=== PATIENT | female | born 1935 | race Caucasian/White ===

== ENCOUNTER 2017-10-02 13:45 | Outpatient (RCR) | payer MEDICARE ==
[2017-09-27 14:01] LABS: PLATELET COUNT, AUTOMATED 162 K/uL (150-450)
[2017-09-27 14:13] VITALS: BP 137/57
[~2017-10-02 13:45] MED LIST: ACET-1966 PO; ANAS1TAB35 PO; ASCO1CAP7 PO; BISA-229 PO; CALC-521 PO; CALC500T6 PO; CHOL10005 PO; CHOL100058 PO; CHOL500045 PO; CHROMIUM GTF PO; DOCU-416 PO; GOLYTE PO; HYDR12.556 PO; HYDR12.561 PO; IBAN150T6 PO; LATODPT OU; LISI-362 PO; LISI20TA29 PO; LOR5 PO; MAGN250T34 PO; MULT-1081 PO; NAPR220C12 PO; OXYC-865 PO; PER PO; SILV20CR2 TP; [UNRECOGNIZED DRUG - CODE] OP
[2017-10-02 13:52] VITALS: BP 150/79
--- NOTE | 2017-10-02 14:33 | ONC Progress Note - NP.Halsey ---
Patient History Date of Service Oct 02, 2017 Reason For Visit/HPI Patient is seen in the clinic today for follow up of her recurrent breast cancer and resected colon cancer. Overall she reports that she is feeling well. She does have some ongoing bowel irregularity with episodes of diarrhea followed by constipation. She is not sure if this has anything to do with certain foods that she eats. She occasionally has some abdominal cramping. She denies any nausea or weight loss. She has no shortness of breath, chest pain or cough. She occasionally has a twinge that radiates from the right chest wall to the back scapula. She does not take any medication for this but reports that just repositioning when she is in bed and the pain goes away. She denies any nocturia but does have increased frequency during the day which remains stable. She continues on Arimidex 1 mg daily with occasional hot flashes but good toleration and no fatigue. She takes Boniva once a month thousand difficulty. Labs reviewed today are unremarkable. CEA and CA-15-3 remain stable In review patient is scheduled for a colonoscopy in January, she'll have a left breast mammogram and bone density in November. Previous CT scan of chest abdomen and pelvis in June was stable without changes. She would like to repeat the CT scan in January. 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 Invasive ductal carcinoma of the right breast. * Early 2013: Abnormal mammogram. * August 2013: Ultrasound guided biopsy of right breast mass. Pathology: Invasive ductal carcinoma, ER positive/TN negative, HER2 of 1+ (negative). * September 27, 2013: Right modified radical mastectomy. Pathology: 1.5 cm invasive ductal carcinoma with close margin at the chest wall. 6/6 lymph nodes were negative. This was staged as a pT1c N0 tumor. The patient decided to forego adjuvant therapy. * May 2016: Presentation with palpable right chest wall mass. This lesion was biopsied and returned with evidence of adenocarcinoma. * CT-PET scan shows right breast mass as well as focal uptake in the transverse colon. Please see next oncologic history item. * July 2016 - August 2016: Radiation therapy to right chest wall. * September 06, 2016: Initiation of Arimidex. * November 29, 2016: CT-PET scan. There is a new 12 mm nodule in the right middle lobe, nodule or nodular atelectasis, essentially seen on a single image. It is not FDG avid and a benign etiology is favored. There are no other FDG avid lung nodules elsewhere. There is postoperative change in the right chest wall from interval nodule resection without evidence of residual or recurrent disease. There is no FDG avid recurrent or metastatic malignancy. There is evidence of her prior transverse colon resection with expected postop changes. 2. Colon Adenocarcinoma. Due to the above noted finding on CT-PET scan, the patient went for colonoscopy, which revealed a right-sided mass. She underwent right hemicolectomy in June of 2016. * June 2016 surgical pathology: Moderately differentiated colonic adenocarcinoma with superficial invasion of the muscularis propria. The proximal and distal surgical resection margins were negative. Four immunoperoxidase stains for microsatellite studies are all positive, including MLH1, MSH2, MSH6, and PMS2. This is staged as a pT2 N0 (stage I) colon adenocarcinoma. The patient received no adjuvant therapy, appropriately. * January 2017: Follow-up colonoscopy without evidence of cancer recurrence. One polyp removed. Medical History Family History: FH: breast cancer MATERNAL COUSIN FH: diabetes mellitus MOTHER, , Age:93 BROTHER OR SISTER FH: glaucoma MOTHER, , Age:93 BROTHER OR SISTER FH: leukemia FATHER, , Age:62 Psychosocial History Social History The patient is a nonsmoker and nondrinker. There is no history of illicit drug use. She is and she has seven children. She retired in 2005. Smoking History: No Smoking Status: Never Smoker Exposure to Second Hand Smoke?: Yes (her neyda and her parents) Medications and Allergies Active Scripts Ibandronate Sodium (BONIVA) 150 Mg Tablet, 150 MG PO Q30D for osteoporosis, #1 TAB 11 Refills Prov:MEERA BUNCH ADVERTISING COORDINATOR-BC, ONC 11/23/16 Anastrozole (ARIMIDEX) 1 Mg Tablet, 1 MG PO DAILY, #30 TAB Patient is getting free drug through assistance program Prov:MEERA BUNCH ADVERTISING COORDINATOR-BC, ONC 08/30/16 Reported Medications Calcium Carbonate (CALCIUM) 500 Mg Tablet, 500 MG PO DAILY 11/23/16 Ascorbic Acid/Collagen Hydr (COLLAGEN PLUS VIT C CAPSULE) 1 Each Capsule, 1 EACH PO DAILY, CAPSULE 06/21/16 Naproxen Sodium (ALEVE) 220 Mg Capsule, 220 MG PO TID Y for PAIN/HEADACHE, CAPSULE 06/21/16 Acetaminophen (TYLENOL) 325 Mg Tablet, 325 MG PO PRN Y for PAIN/HEADACHE, TAB 06/21/16 Hydrochlorothiazide (HYDROCHLOROTHIAZIDE) 12.5 Mg Tablet, 1 TAB PO 2XW, TAB 06/21/16 Magnesium Oxide (MAGNESIUM) Unknown Strength Tablet, 250 MG PO QDAY 06/07/16 [Chromium Gtf] No Conflict Check, 250 MCG PO QDAY 05/25/16 Cholecalciferol (Vitamin D3) (VITAMIN D3) 1,000 Unit Tablet, 4000 UNIT PO QDAY, TAB 05/25/16 Lisinopril (LISINOPRIL) 20 Mg Tablet, 20 MG PO QDAY, TAB 05/25/16 Latanoprost (TRAVATAN Z) 2.5 Ml Soln, 1 DROP OU QHS 09/24/13 Allergies: Coded Allergies: No Known Drug Allergies (Verified , 01/12/17) Review of System/Physical Exam Review of Systems All Systems Reviewed/Normal: Yes, Except as Noted Gastrointestinal: Diarrhea, Constipation Endocrine: Positive for Hot Flashes Physical Exam Vital Signs Temperature: 97.0 Pulse: 105 BP Systolic: 150 BP Diastolic: 79 Respiratory Rate: 16 O2 SAT: 90 O2 Delivery: Room Air Height (inches) 61.00 Weight lb: 135 Weight oz: 2.0 Weight Kg (Johnny): 67.19 Pain: 0 ECOG Score: 0 General: Stable, Well Developed, Well Nourished, Not In Acute Distress HEENT: No Trauma, No Conjunctivitis, No Icterus, No Mucositis Neck: Supple, No Thyromegaly Lungs: Clear to Auscultation Heart: Regular Rate, Regular Rhythm, No Gallops Abdomen: Soft and Nontender, No Hepatosplenomegaly, No Masses, Other Extremities: No Cyanosis, No Clubbing, No Edema Lymphadenopathy: No Cervical, No Subclavicular, No Axillary Psychiatric: Mood appears normal, Affect appears normal Skin: No Skin Rashes, No Bruising, No Purpura Diagnostic Studies Diagnostic Studies Laboratory Laboratory Tests 09/27/17 13:55 Laboratory Tests 09/27/17 13:55: White Blood Count 3.5, Red Blood Count 4.56, Hemoglobin 14.8, Hematocrit 43.1, Mean Corpuscular Volume 94.6, Mean Corpuscular Hemoglobin 32.4, Mean Corpuscular Hemoglobin Concent 34.3, Red Cell Distribution Width 13.7, Platelet Count 162, Mean Platelet Volume 7.3, Neutrophils (%) (Auto) 45.5, Lymphocytes (% ) (Auto) 45.3, Monocytes (%) (Auto) 7.5, Eosinophils (%) (Auto) 0.9, Basophils ( %) (Auto) 0.8, Nucleated RBC Relative Count (auto) 0.1, Neutrophils # (Auto) 1.6 , Lymphocytes # (Auto) 1.6, Monocytes # (Auto) 0.3, Eosinophils # (Auto) 0.0, Basophils # (Auto) 0.0, Nucleated RBC Absolute Count (auto) 0.00, Sodium Level 139, Potassium Level 4.1, Chloride Level 103, Carbon Dioxide Level 24, Blood Urea Nitrogen 15, Creatinine 0.90, Glomerular Filtration Rate Calc > 60.0, Random Glucose 100, Calcium Level 9.1, Total Bilirubin 0.6, Aspartate Amino Transf (AST/SGOT) 23, Alanine Aminotransferase (ALT/SGPT) 27, Alkaline Phosphatase 68, Total Protein 7.5, Albumin 4.1, Carcinoembryonic Antigen 2.1, CA 15-3 Antigen 25 Assessment and Plan Assessment & Plan 1. Recurrent ER positive breast cancer. The patient continues on aromatase inhibitor therapy, with Arimidex 1 mg daily. She seems to be tolerating without significant difficulty, patient will hot flashes. She has had some bowel irregularity, but no nausea. She will be due for mammogram of the left breast in November. Chest wall exam of the right is unremarkable. Patient has no evidence of recurrent disease. CA-15-3 is within normal limits. 2. Colon cancer. She will have a follow-up colonoscopy in January with Dr. Cuevas. Patient had a recent CT scan of chest abdomen and pelvis identifying pulmonary nodules that have remained stable without change. Patient feels comfortable repeating CT scan in January and following with Dr. Mccain to review results. CEA tumor marker remains within normal limits. Patient will return with CBC, CMP and CEA and CA-15-3 in January. 3. Osteoporosis. Bisphosphonate therapy continues, currently with Boniva. Patient will have a repeat bone density study completed in November. Patient will continue to follow with Dr. Buckner her primary care provider. I personally spent a total of 30 minutes. Of that 25 minutes was counseling/ coordination of patient's care. See my note above for details. Copies to: LEE BUCKNER NANCY J ADVERTISING COORDINATOR-BC, ONC Oct 02, 2017 14:33
== END 2017-12-25 ==
LOC: ONC 13:45
PROVIDERS: ATTEND Internal Medicine Medical Oncology
DX: Z85.3 Personal history of malignant neoplasm of breast (principal); Z85.038 Personal history of other malignant neoplasm of large intestine; M81.0 Age-related osteoporosis without current pathological fracture; R19.7 Diarrhea, unspecified; K59.00 Constipation, unspecified; Z79.899 Other long term (current) drug therapy
CPT/HCPCS: 36415; 82378; 85025; 86300; G0463; 82040; 82247; 82310; 82374; 82435; 82565; 82947; 84075; 84132; 84155; 84295; 84450; 84460; 84520; 99212

== ENCOUNTER → 2017-10-27 | Outpatient (CLI) | payer MEDICARE ==
--- NOTE | 2017-10-27 16:15 | RADIOLOGY IMAGING REPORT ---
FACILITY: [facility] PATIENT NAME: Venus Quezada : 1935 MR: [id number] V: [id number] EXAM DATE: ORDERING PHYSICIAN: FELISA ENAMORADO TECHNOLOGIST: Location: [facility] - [place] Patient: Venus Quezada : 1935 Visit/Account:[id number] Date of Sevice: 10/27/2017 EXAMINATION: Right foot, 2 views 10/27/2017 1:43 PM HISTORY: Pain in right calcaneal area. Bruising and swelling for 4 days. No known injury. COMPARISON: Right ankle 06/29/2016 FINDINGS: Bones are osteopenic. Moderate plantar calcaneal spurring and milder Achilles calcaneal sp urring. No acute bony finding the foot evident. Mild degenerative changes along the first MTP. IMPRESSION: No acute bony abnormality. Report Dictated By: Travis Arrieta MD at 10/27/2017 4:06 PM Report E-Signed By: Travis Arrieta MD at 10/27/2017 4:11 PM WSN:[id number]
== END ==
LOC: RAD 13:33
PROVIDERS: ATTEND Physician Assistant Medical
DX: M79.671 Pain in right foot (principal)

== ENCOUNTER → 2017-11-22 | Outpatient (CLI) | payer MEDICARE ==
--- NOTE | 2017-11-22 14:00 | RADIOLOGY IMAGING REPORT ---
FACILITY: [facility] PATIENT NAME: Venus Quezada : 1935 MR: [id number] V: [id number] EXAM DATE: ORDERING PHYSICIAN: MEERA BUNCH TECHNOLOGIST: Location: [facility] - [place] Patient: Venus Quezada : 1935 Visit/Account:[id number] Date of Sevice: 11/22/2017 DEXA Scan Clinical history: Breast cancer 2013. Comparison: DEXA scan from 11/14/2016. LUMBAR SPINE: The bone mineral density (BMD) measured from L1-L4 correlates with a Z-score of 0.8 and a T-score of -1.1 which is osteopenia as defined by the World Health Organization. The corresponding risk of frac ture in the lumbar spine is to 3 times increased compared with a young adult reference population. T his value has decrease by 3.2 % since the prior study. More than 5% change is considered significant . HIP: Bone mineral density (BMD) measured in the LEFT total hip region correlates with a Z-score -0.3 and a T-score of -2.4 which is osteopenia as defined by the World Health Organization. The corresponding risk of fracture in the hip is 4-6 times increased compared to a young adult reference population. Th is value has increased by 0.6 % since the prior study. More than 5% change is considered significant . T score left femoral neck -2.8 Bone mineral density (BMD) measured in the Femoral Neck region measures 0.647 g/cm?. IMPRESSION: 1. Lumbar spine: Osteopenia. There has been 3.2% decrease in the bone mineral density since the pre vious exam. 2. Left Total Hip: Osteopenia. There has been 0.6% increase in the bone mineral density since the p revious exam. 3. Femoral Neck: Bone Mineral Density is 0.647 g/cm? The next DEXA scan of this patient should include the following sites: L1-L4 and the left hip. FRAX? WHO Fracture Risk Assessment Tool link: <http://www.shef.ac.uk/FRAX/tool.jsp?locationValue=9> PLEASE NOTE: 1) The World Health Organization defines low BMD as follows: T-score Normal > -1 Osteopenia < -1 and > -2.5 Osteoporosis < -2.5 without fractures Established osteoporosis < -2.5 with fractures 2) In general, you may wish to consider: Diagnosis Treatment Follow-up DEXA Normal BMD Prevention 2-3 years Osteopenia Prevention/therapy 1-2 years Osteoporosis Therapy Yearly 3) Fracture risk estimated from the T-score is more accurate for vertebral fractures (often spontane ous) than for hip fractures. Report Dictated By: Catherine Henry MD at 11/22/2017 1:55 PM Report E-Signed By: Catherine Henry MD at 11/22/2017 1:56 PM WSN:[email or web address]
--- NOTE | 2017-11-23 16:21 | RADIOLOGY IMAGING REPORT ---
FACILITY: [facility] - [place] PATIENT NAME: PAUL RAY : [id number] MR: [id number] V: [id number] EXAM DATE: [id number] ORDERING PHYSICIAN: MEERA BUNCH TECHNOLOGIST: Norah Shaikh PROCEDURE: MAMMOGRAM SCREENING LEFT UNILATERAL WITH CAD ASSISTED INTERPRETATION & 3D TOMOSYNTHESIS COMPARISON: Prior Left mammograms 11/14/16, 11/06/15, 11/05/14, 06/25/13. INDICATIONS: SCREENING FINDINGS: Moderate amount of fibroglandular tissue is seen throughout the Left breast. The parenchymal pattern has remained stable allowing for difference in mammographic technique & patient positioning. There is no evidence of malignant appearing mass, malignant appearing calcifications or other secondary sign of malignancy in the Left breast. DIAGNOSTIC CATEGORY 1--NEGATIVE. RECOMMENDATIONS: ROUTINE MAMMOGRAM AND CLINICAL EVALUATION. IMPRESSION: BIRADS 1: Negative No significant abnormality of the Left breast is seen. Dictated by: Catherine Henry M.D. on 11/22/2017 at 16:14 Transcribed by: BRANDON on 11/23/2017 at 9:23 Approved by: Catherine Henry M.D. on 11/23/2017 at 16:21 [facility]
== END ==
LOC: MAMO 01:15
PROVIDERS: ATTEND Nurse Practitioner Family
DX: Z13.820 Encounter for screening for osteoporosis (principal); Z12.31 Encounter for screening mammogram for malignant neoplasm of breast; M85.89 Other specified disorders of bone density and structure, multiple sites
CPT/HCPCS: 77063; 77067; 77080

== ENCOUNTER 2018-01-10 10:42 | Outpatient (RCR) | payer MEDICARE ==
[2018-01-08 09:15] LABS: PLATELET COUNT, AUTOMATED 145 K/uL (150-450)
--- NOTE | 2018-01-08 11:06 | RADIOLOGY IMAGING REPORT ---
FACILITY: [facility] [place] PATIENT NAME: Venus Quezada : 1935 MR: [id number] V: [id number] EXAM DATE: ORDERING PHYSICIAN: DIXON BROWNE TECHNOLOGIST: Location: [facility] Patient: Venus Quezada : 1935 Visit/Account:[id number] Date of Sevice: 01/08/2018 CHEST/AB/PELV W/CONTRAST HISTORY: Breast cancer ADDITIONAL HISTORY: None. TECHNIQUE: Following administration of IV contrast axial images acquired through the chest abdomen a nd pelvis during the portal venous phase. Coronal and sagittal reformatting was also performed. Dose Lowering Technique One of the following dose optimization techniques was utilized in the performance of this exam: Autom ated exposure control; adjustment of the mA and/or kV according to the patient's size; or use of an i terative reconstruction technique. Specific details can be referenced in the facility's radiology C T exam operational policy. CONTRAST: 75 mL Isovue-370 COMPARISON: July 26, 2017 FINDINGS: CHEST: Lungs/Pleura: Previously noted 6 mm noncalcified pulmonary nodule abutting the minor fissure on the right middle lobe actually appears less prominent now measures approximately 5 mm and is best seen on image 50 of series 4. Previously noted 5 mm pleural-based nodule superior anterior aspect left lower lobe actually appears less prominent now measures 4 mm in diameter. Nodular infiltrate lateral aspect right middle lobe appears well totally unchanged and appears more s carlike. No new pulmonary nodules are seen Mediastinum/lymph nodes: Negative. Heart/vessels: Negative. Bones/soft tissues: Gentle dextroconvex scoliosis of the thoracic spine again seen. No aggressive a ppearing bone lesions are identified. Surgical clips again seen in the right-sided the neck. There are postsurgical changes from a right mastectomy. ABDOMEN AND PELVIS: Hepatobiliary: Postsurgical changes from a cholecystectomy Spleen: Negative. Pancreas: Negative. Adrenals: Negative. Kidneys ureters and bladder : Scarring again noted in the upper poles of both kidneys. The 2 mm nono bstructing calculus upper pole of the left kidney Genitalia: Hysterectomy GI: Small hiatal hernia. Duodenal diverticulum Diverticulosis left-sided colon although no CT evidence of acute diverticulitis. Postsurgical change s from a right colectomy Vessels/spaces/nodes: Negative. Bones/soft tissues: No aggressive appearing bone lesions Additional findings: None pertinent. IMPRESSION: Previously noted pulmonary nodules have remained stable with no new pulmonary nodules seen Nodular infiltrate lateral aspect right middle lobe appears stable and more scarlike at this time Postsurgical changes from a cholecystectomy hysterectomy right colectomy and right mastectomy. Diverticulosis left-sided colon 2 mm nonobstructing calculus upper pole left kidney Small hiatal hernia Report Dictated By: Catherine Henry MD at 01/08/2018 10:39 AM Report E-Signed By: Catherine Henry MD at 01/08/2018 11:00 AM WSN:[id number]
[~2018-01-10 10:42] MED LIST changes: +DEXTROSE 5%(*) 100 ML BAG 100 ML IVPB PRN; +IOPAMIDOL 76% 75 ML INFUS BTL 75 ML ONE; +LIDOCAINE/SOD BICARB 8.4% SYR ID PRN; +NS(*) 0.9% 100 ML BAG 100 ML IVPB PRN
[2018-01-10 10:51] VITALS: BP 131/77
--- NOTE | 2018-01-10 15:05 | ONCOLOGY FOLLOW UP NOTE ---
EVENT DATE: January 10, 2018 REASON FOR FOLLOWUP 1. Recurrent breast cancer. 2. Resected colon cancer. 3. Osteopenia. CHIEF COMPLAINT Patient feels well today, but she continues to have left knee pain. HISTORY OF PRESENT ILLNESS The patient returns to clinic for a follow-up visit today. Since our last visit , she reports that she has been feeling pretty good in general. Her appetite is good, and her weight has been stable. She has had no shortness of breath, chest pain, or cough. She has had no abdominal pain, nausea, or vomiting. She reports no new bowel or bladder symptoms. She has had some ongoing aches and pains, but she has had limitations in exercise capacity due to left knee pain in particular. She had undergone arthroscopy of the left knee remotely, and she does remember being told that she had a meniscal injury. She has had no formal orthopedic evaluation since that time. REVIEW OF SYSTEMS Otherwise negative, and all systems were reviewed. ONCOLOGIC HISTORY 1. Invasive ductal carcinoma of the right breast. * 2013: Abnormal mammogram. * August 2013: Ultrasound guided biopsy of right breast mass. Pathology: Invasive ductal carcinoma, ER positive/SC negative, HER2 of 1+ (negative). * September 27, 2013: Right modified radical mastectomy. Pathology: 1.5 cm invasive ductal carcinoma with close margin at the chest wall. 6/6 lymph nodes were negative. This was staged as a pT1c N0 tumor. The patient decided to forego adjuvant therapy. * May 2016: Presentation with palpable right chest wall mass. This lesion was biopsied and returned with evidence of adenocarcinoma. * CT-PET scan shows right breast mass as well as focal uptake in the transverse colon. Please see next oncologic history item. * July 2016 - August 2016: Radiation therapy to right chest wall. * September 06, 2016: Initiation of Arimidex. * November 29, 2016: CT-PET scan. There is a new 12 mm nodule in the right middle lobe, nodule or nodular atelectasis, essentially seen on a single image. It is not FDG avid and a benign etiology is favored. There are no other FDG avid lung nodules elsewhere. There is postoperative change in the right chest wall from interval nodule resection without evidence of residual or recurrent disease. There is no FDG avid recurrent or metastatic malignancy. There is evidence of her prior transverse colon resection with expected postop changes. * January 08, 2018, CT chest, abdomen and pelvis: Previously noted pulmonary nodules are stable, no new nodules; nodular infiltrate in lateral aspect of right middle lobe appears stable and more scar like; posterior surgical changes from left cholecystectomy, hysterectomy, right colectomy, and right mastectomy; diverticulosis of the left colon; 2 mm nonobstructing calculus in left kidney and small hiatal hernia. 2. Colon Adenocarcinoma. Due to the above noted finding on CT-PET scan, the patient went for colonoscopy, which revealed a right-sided mass. She underwent right hemicolectomy in June of 2016. * June 2016 surgical pathology: Moderately differentiated colonic adenocarcinoma with superficial invasion of the muscularis propria. The proximal and distal surgical resection margins were negative. Four immunoperoxidase stains for microsatellite studies are all positive, including MLH1, MSH2, MSH6, and PMS2. This is staged as a pT2 N0 (stage I) colon adenocarcinoma. The patient received no adjuvant therapy, appropriately. * January 2017: Follow-up colonoscopy without evidence of cancer recurrence. One polyp removed. PAST MEDICAL HISTORY 1. History of Vitamin D deficiency. 2. Breast cancer, as above. 3. Colon cancer, as above. 4. 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 5. Hypercholesterolemia. 6. Diabetes. 7. Glaucoma. 8. Cataracts. 9. Hypertension. MEDICATIONS 1. Arimidex 1 mg p.o. daily. 2. Silvadene cream p.r.n. 3. Ascorbic acid. 4. Aleve p.r.n. 5. Tylenol p.r.n. 6. Hydrochlorothiazide 12.5 mg one tablet p.o. two times per week. 7. Magnesium oxide. 8. Vitamin D3. 9. Lisinopril. 10. Latanoprost drops. 11. Boniva. PAST SURGICAL HISTORY The patient is status post hysterectomy as well as laparoscopic cholecystectomy. SOCIAL HISTORY The patient is a nonsmoker and nondrinker. There is no history of illicit drug use. She is and she has seven children. She retired in 2005. FAMILY HISTORY There is a history of breast cancer in a maternal cousin, as well as leukemia in her father. VITAL SIGNS Temperature is 97.0, blood pressure 131/77, pulse is 84, respirations 16, oxygen saturation is 91% on room air. Weight is 61.2 kg. PHYSICAL EXAMINATION GENERAL: Patient is alert and oriented times three, in no apparent distress sitting in the exam room chair. She appears healthy. She is interactive and pleasant. HEENT: Exam reveals anicteric sclerae. No significant oropharyngeal lesions. LUNGS: Clear to auscultation bilaterally. HEART: Exam reveals regular rate and rhythm. NEUROLOGIC: Exam is grossly nonfocal and her gait is normal. EXTREMITIES: Exam reveals no edema, clubbing or cyanosis. LABORATORY STUDIES Reviewed per the [facility] record. IMAGING Please see oncology history. ASSESSMENT AND PLAN 1. Recurrent ER positive breast cancer. Ms. Quezada continues on palliative aromatase inhibitor therapy. She has very modest side effects from the medication, and she is very much in favor of continuing it. We spent time today reviewing her recent DEXA scan, which has shown some worsening of her bone mineral density in the lumbar spine. We discussed that the aromatase inhibitor is likely at least in part to blame for this. In addition, she is getting very little, if any exercise. She blames this on her left knee pain, which is ongoing. She does reportedly have a history of a meniscal tear remotely, but she has not recently seen Orthopedics. I have recommended that she continue to do so, because it will be very important for her to be able to continue with weightbearing exercise to keep her bone mineral density in an acceptable range. She should continue on calcium and vitamin D supplementation. We will plan to have her follow up here in three months with Rosalie, nurse practitioner, or sooner if there are questions or concerns. 2. Colon cancer. There is no evidence of colon cancer recurrence on her recent CT scan. She was happy to hear this. 3. Osteopenia. She has been on Boniva, per her report. Please see above discussion, but bisphosphonate therapy should continue. MTDD
== END 2018-03-01 13:49 | disposition home or self-care (01) ==
LOC: ONC 10:42
PROVIDERS: ATTEND Internal Medicine Medical Oncology
DX: C50.911 Malignant neoplasm of unspecified site of right female breast (principal); R91.8 Other nonspecific abnormal finding of lung field; K57.30 Diverticulosis of large intestine without perforation or abscess without bleeding; N20.0 Calculus of kidney; K44.9 Diaphragmatic hernia without obstruction or gangrene; Z17.0 Estrogen receptor positive status [ER+]; Z85.038 Personal history of other malignant neoplasm of large intestine; M85.80 Other specified disorders of bone density and structure, unspecified site
CPT/HCPCS: 36415; 71260; 74177; 82378; 85025; 86300; G0463; Q9967; 82040; 82247; 82310; 82374; 82435; 82565; 82947; 84075; 84132; 84155; 84295; 84450; 84460; 84520; 99212